=== PATIENT | female | born 1935 | race Caucasian/White ===

== ENCOUNTER 2017-05-06 09:58 | Emergency (ER) | payer OTHER ==
[~2017-05-06] VITALS: Ht 157.5 cm; Wt 54.5 kg
[~2017-05-06 09:58] MED LIST: ALEN70TA30; CHOL2000 PO; DICY10CA60 PO; LEVO75TA5 PO; OMEP20CA16 PO; ONDA4TAB14 PO; POLY17PO6 PO
[2017-05-06 10:35] VITALS: Ht 157.5 cm; Wt 54.5 kg
[2017-05-06] MEDS ORDERED: ONDANSETRON (ODT) 4 MG TAB ODT STA (12:41)
[2017-05-06] MEDS ORDERED: ONDANSETRON (ODT) 4 MG TAB ODT ONE (12:44)
[2017-05-06] MEDS ORDERED: ALEN70TA30 PO (12:44)
[2017-05-06] MEDS ORDERED: HYDROCODONE/APAP (5/325) TAB ONE (12:44)
[2017-05-06] MEDS ORDERED: LEVO75TA5 PO (12:46)
[2017-05-06] MEDS ORDERED: HYDROCODONE/APAP (5/325) TAB PO ONE (13:00)
[2017-05-06 13:05] VITALS: BP 157/72; PULSE 47; RESP 17
--- NOTE | 2017-05-06 14:05 | RADRPT ---
PROCEDURE: Right hip series CLINICAL INDICATION: Right hip pain. Trauma. TECHNIQUE: Two views of the right hip are submitted COMPARISON: None FINDINGS: The right hip appears aligned without evidence of fractures, dislocations or osteolytic lesions. Ac etabulum appears intact.. IMPRESSION: Normal RPTAT: HJPL .Carlyle Douglas MD, Date Time Electronically viewed and signed by .Carlyle Douglas MD, on 05/06/2017 14:05 .L/
--- NOTE | 2017-05-06 14:05 | RADRPT ---
PROCEDURE: XR Pelvis. CLINICAL INDICATION: Trauma. Pain. TECHNIQUE: Single AP view of the pelvis. COMPARISON: No prior studies are available for comparison. FINDINGS: The osseous structures, articular spaces, and surrounding soft tissues of the pelvis are unremarkabl e. No acute fracture or dislocation is seen. No radiopaque foreign body is identified. The osseous mineralization is normal. The sacroiliac joints, as visualized, are grossly unremarkable. IMPRESSION: 1. Unremarkable x-ray pelvis. RPTAT: HJPL .Carlyle Douglas MD, MD Date Time Electronically viewed and signed by .Carlyle Douglas MD, on 05/06/2017 14:04 .L/
--- NOTE | 2017-05-06 14:07 | RADRPT ---
PROCEDURE: XR Shoulder. CLINICAL INDICATION: Left shoulder pain. TECHNIQUE: Three views of the left shoulder are available for review. COMPARISON: None available FINDINGS: There is a mildly displaced slightly comminuted fracture of the left humeral head extending into the greater tuberosity. The glenohumeral joint is aligned without dislocation. . The acromioclavicular joint is grossly unremarkable. The visualized portions of the left clavicle and upper left rib cage are equally unremarkable. IMPRESSION: 1. Mildly displaced and comminuted fracture of the left humeral head. 2. No evidence of dislocation. RPTAT: HJPL .Carlyle Douglas MD, MD Date Time Electronically viewed and signed by .Carlyle Douglas MD, on 05/06/2017 14:06 .L/
--- NOTE | 2017-05-06 14:36 | RADRPT ---
PROCEDURE: CT Brain without contrast. CLINICAL INDICATION: Fall. Headache. TECHNIQUE: A multiplanar CT of the brain was performed on a CT scanner utilizing axial imaging fro m the skull base through the vertex without IV contrast. The CTDIvol is 43.48 mGy and the DLP is 63 0.20 mGycm. One or more of the following dose reduction techniques were utilized: Automated exposu re control, adjustment of the mA and/or kV according to patient size, use of iterative reconstructio n technique. COMPARISON: None FINDINGS: No evidence of intracranial hemorrhage or abnormal extra-axial fluid collection. Minimal soft tissue swelling along the right supraorbital scalp. The brain parenchyma is normal attenuation morphology with preservation of morris white differentiatio n and age appropriate size of the ventricles and subarachnoid spaces. Atherosclerotic calcification of the cavernous internal carotid arteries. The basal cisterns, posterior fossa contents, brainstem, craniocervical junction, orbits, pituitary axis, paranasal sinuses, mastoid air cells, and calvarium are unremarkable. IMPRESSION: 1. No intracranial hemorrhage or acute intracranial abnormality. 2. Atherosclerotic calcification of the cavernous carotid arteries. RPTAT:AAJJ Physician Robin Date Time Electronically viewed and signed by Physician Robin on 05/06/2017 14:36 BARBARA/
[2017-05-06] MEDS ORDERED: HYDR-906 PO (16:01)
--- NOTE | 2017-05-06 16:20 | ERD ---
ER Documentation Chief Complaint Date/Time DATE: 05/06/17 TIME: 16:16 Chief Complaint glf-left shoulder pain from fall; dizziness; no ko HPI This 82-year-old female who is walking in a parking lot when she accidentally sliced her balance and tripped and she fell forward and hit her left shoulder onto a parked car and fell to the ground on her right side. No loss of consciousness but says she did hit her chin there is no laceration. She complained of sharp pain to the left upper extremity and upper shoulder is worse with movement better with rest. No headache neck pain no back pain there is also some pain at the greater trochanter of the right hip. She is able to ambulate and bear weight without much difficulty or minimal pain. No pain in other extremities no chest pain shortness of breath no abdominal pain or trauma ROS All systems reviewed and are negative except as per history of present illness. Medications Home Meds Active Scripts Hydrocodone/Acetaminophen (Carson 5-325 Tablet) 1 Each Tablet, 1 TAB PO Q6H Y for PAIN, #20 TAB Prov:PAYAL MCINTOSH DO 05/06/17 Reported Medications Levothyroxine Sodium* (Levothyroxine Sodium*) 75 Mcg Tablet, 75 MCG PO BEFORE BREAKFAST, #30 TAB 05/06/17 Alendronate Sodium* (Fosamax*) 70 Mg Tablet, 70 MG PO Q7D, #4 TAB 05/06/17 Omeprazole* (Omeprazole*) 20 Mg Capsule.dr, 20 MG PO DAILY, CAP 07/27/15 Cholecalciferol* (Vitamin D3*) 2,000 Unit Cap, 2000 UNIT PO DAILY, CAP 07/27/15 Discontinued Reported Medications Dicyclomine Hcl* (Bentyl*) 10 Mg Capsule, 1 TAB PO BID, #60 08/15/16 Discontinued Scripts Ondansetron (Ondansetron Odt) 4 Mg Tab.rapdis, 4 MG PO Q6H Y for NAUSEA AND/OR VOMITING, #10 TAB Prov:OPAL MEYER DO 08/18/16 Polyethylene Glycol* (Miralax*) 17 Gm Powd.pack, 17 GM PO DAILY, #7 Prov:OPAL MEYER DO 08/18/16 Allergies Allergies: Coded Allergies: No Known Drug Allergies (Verified Allergy, Unknown, 12/22/16) PMhx/Soc History of Surgery: Yes (RT RADICAL MASTECTOMY, bilat hernia repair 5 days ago) Anesthesia Reaction: No Hx Neurological Disorder: No Hx Respiratory Disorders: No Hx Cardiac Disorders: No Hx Psychiatric Problems: No Hx Miscellaneous Medical Probl: No Hx Alcohol Use: No Hx Substance Use: No Hx Tobacco Use: No Smoking Status: Never smoker FmHx Family History: No coronary disease Physical Exam Vitals Vital Signs Date Time Temp Pulse Resp B/P Pulse Ox O2 Delivery O2 Flow Rate FiO2 05/06/17 13:05 47 17 157/72 100 Room Air 05/06/17 10:35 97.2 54 18 138/65 99 Physical Exam Const: Well-developed, well-nourished Head: Atraumatic, normocephalic Eyes: Normal Conjunctiva, PERRLA, EOMI, normal sclera, no nystagmus ENT: Normal External Ears, Nose and Mouth, moist mucus membranes. Neck: Full range of motion. No meningismus, no lymphadenopathy. Resp: Clear to auscultation bilaterally, no wheezing, rhonchi, rales Cardio: Regular rate and rhythm, no murmurs, S1 S2 present Abd: Soft, non tender x 4, non distended. Normal bowel sounds, no guarding or rebound, no pulsitile abdominal masses or bruits Skin: No petechiae or rashes, no ecchymosis , no maculopapular rash Back: No midline or flank tenderness Ext: No cyanosis, or edema, FROM x 3, the left humeral head is tender to palpation no gross dislocation. Limited range of motion secondary to pain, there is pain located at the greater trochanter of the right hip but there is full range of motion of the hip without pain, normal inspection, neurovascularly intact x 4 Neur: Awake and alert, STR 5/5 x 4, sensation intact x 4, no focal findings, cerebellum intact Psych: Normal Mood and Affect Results 24 hrs Current Medications Medications (Trade) Dose Ordered Sig/Radha Route PRN Reason Start Time Stop Time Status Last Admin Dose Admin Acetaminophen/ Hydrocodone Bitart (Carson (5/325)) 1 tab ONCE ONCE PO 05/06/17 13:00 05/06/17 13:01 DC 05/06/17 12:46 Ondansetron HCl (Zofran Odt) 4 mg ONCE STAT ODT 05/06/17 12:41 05/06/17 12:45 DC 05/06/17 12:45 Ondansetron HCl (Zofran Odt) 4 mg STK-MED ONCE ODT 05/06/17 12:44 05/06/17 12:45 DC Acetaminophen/ Hydrocodone Bitart (Carson (5/325)) 1 tab STK-MED ONCE .ROUTE 05/06/17 12:44 05/06/17 12:45 DC Procedures/MDM PROCEDURE: CT Brain without contrast. CLINICAL INDICATION: Fall. Headache. TECHNIQUE: A multiplanar CT of the brain was performed on a CT scanner utilizing axial imaging from the skull base through the vertex without IV contrast. The CTDIvol is 43.48 mGy and the DLP is 630.20 mGycm. One or more of the following dose reduction techniques were utilized: Automated exposure control, adjustment of the mA and/or kV according to patient size, use of iterative reconstruction technique. COMPARISON: None FINDINGS: No evidence of intracranial hemorrhage or abnormal extra-axial fluid collection. Minimal soft tissue swelling along the right supraorbital scalp. The brain parenchyma is normal attenuation morphology with preservation of morris white differentiation and age appropriate size of the ventricles and subarachnoid spaces. Atherosclerotic calcification of the cavernous internal carotid arteries. The basal cisterns, posterior fossa contents, brainstem, craniocervical junction , orbits, pituitary axis, paranasal sinuses, mastoid air cells, and calvarium are unremarkable. IMPRESSION: 1. No intracranial hemorrhage or acute intracranial abnormality. 2. Atherosclerotic calcification of the cavernous carotid arteries. RPTAT:AAJJ Physician Robin Date Time Electronically viewed and signed by Physician Robin on 05/06/2017 14:36 BARBARA/ CC: PAYAL MCINTOSH DO PROCEDURE: Right hip series CLINICAL INDICATION: Right hip pain. Trauma. TECHNIQUE: Two views of the right hip are submitted COMPARISON: None FINDINGS: The right hip appears aligned without evidence of fractures, dislocations or osteolytic lesions. Acetabulum appears intact.. IMPRESSION: Normal RPTAT: HJPL .Carlyle Douglas MD, MD Date Time Electronically viewed and signed by .Carlyle Douglas MD, MD on 05/06/2017 14:05 .L/ CC: PAYAL MCINTOSH DO PROCEDURE: XR Pelvis. CLINICAL INDICATION: Trauma. Pain. TECHNIQUE: Single AP view of the pelvis. COMPARISON: No prior studies are available for comparison. FINDINGS: The osseous structures, articular spaces, and surrounding soft tissues of the pelvis are unremarkable. No acute fracture or dislocation is seen. No radiopaque foreign body is identified. The osseous mineralization is normal. The sacroiliac joints, as visualized, are grossly unremarkable. IMPRESSION: 1. Unremarkable x-ray pelvis. RPTAT: HJPL .Carlyle Douglas MD, MD Date Time Electronically viewed and signed by .Carlyle Douglas MD, MD on 05/06/2017 14:04 .L/ CC: PAYAL MCINTOSH DO PROCEDURE: XR Shoulder. CLINICAL INDICATION: Left shoulder pain. TECHNIQUE: Three views of the left shoulder are available for review. COMPARISON: None available FINDINGS: There is a mildly displaced slightly comminuted fracture of the left humeral head extending into the greater tuberosity. The glenohumeral joint is aligned without dislocation. . The acromioclavicular joint is grossly unremarkable. The visualized portions of the left clavicle and upper left rib cage are equally unremarkable. IMPRESSION: 1. Mildly displaced and comminuted fracture of the left humeral head. 2. No evidence of dislocation. RPTAT: HJPL .Carlyle Douglas MD, MD Date Time Electronically viewed and signed by .Carlyle Douglas MD, MD on 05/06/2017 14:06 .L/ CC: PAYAL MCINTOSH DO While the patient follow-up with orthopedics as an outpatient she was given a left upper extremity sling Departure Diagnosis: Primary Impression: Left humeral fracture Encounter type: initial encounter Humerus Location: proximal Fracture type : closed Fracture morphology: unspecified fracture morphology Qualified Code : S42.202A - Closed fracture of proximal end of left humerus, unspecified fracture morphology, initial encounter Additional Impression: Fall with significant injury Encounter type: initial encounter Qualified Code: W19.XXXA - Fall with significant injury, initial encounter Condition: Stable Patient Instructions: Fracture, Upper Extremity, Fall Prevention Referrals: MARÍA ELENA COLLADO MD, APOSTOLOS A. DO May 06, 2017 16:20
== END 2017-05-06 17:05 | disposition home or self-care (01) ==
LOC: E/R 09:58
DX: S42.202A Unspecified fracture of upper end of left humerus, initial encounter for closed fracture (principal); R51 Headache; W01.198A Fall on same level from slipping, tripping and stumbling with subsequent striking against other object, initial encounter; Y92.9 Unspecified place or not applicable
CPT/HCPCS: 70450; 72170; 73030; 73510; Z7502; Z7610

== ENCOUNTER 2017-09-01 17:04 | Inpatient (IN) | END 2017-09-04 14:50 | disposition home or self-care (01) | DRG 123 ==

== ENCOUNTER 2018-08-17 10:54 | Inpatient (IN) | payer MEDICARE, OTHER ==
[~2018-08-17] VITALS: Ht 160 cm; Wt 48.4 kg
[2018-08-17] VITALS (19 sets, daily range): BP systolic 58–154; BP diastolic 49–91; PULSE 44–63; RESP 12–27; Ht 160 cm; Wt 48.4 kg
[~2018-08-17 10:54] MED LIST changes: -ALEN70TA30; +ALEN70TA44 PO; -DICY10CA60 PO; +HYDR-4011 PO; -ONDA4TAB14 PO; -POLY17PO6 PO
[2018-08-17] MEDS ORDERED: OMEP40CA6 PO (11:38)
[2018-08-17] MEDS ORDERED: CHOL200073 PO (11:38)
[2018-08-17] MEDS ORDERED: MECL-77 PO (11:39)
[2018-08-17] MEDS ORDERED: LEVO75TA65 PO (11:39)
[2018-08-17] MEDS ORDERED: ZOLP5TAB7 PO (11:39)
[2018-08-17] MEDS ORDERED: morphine 2 MG INJ IV STA (13:10)
[2018-08-17] MEDS ORDERED: ONDANSETRON 4 MG INJ IV STA (13:10)
--- NOTE | 2018-08-17 13:28 | HP ---
Date/Time of Note Date/Time of Note DATE: 08/17/18 TIME: 13:27 Assessment/Plan VTE Prophylaxis SCD applied (from Nsg): Yes Pharmacological prophylaxis: NA/contraindicated Pharm contraindication: bleeding Lines/Catheters IV Catheter Type (from Nrsg): Saline Lock Assessment/Plan Assessment/Plan 1. Acute subdural hematoma s/p mechanical fall - Patient missed a step walking down front steps outside home. - CT scan of head shows 3mm subdural hematoma and left frontoparietal swelling/hematoma. - Neurosurgery consulted by ED and appreciate consultation and recommendations. Will monitor in ICU and repeat CT scan head in am to assess SDH - continue neurochecks and avoid sedation medications - no focal deficits appreciated - maintain BP <140 2. mechanical fall - PT/OT to assess balance but appears patient simply tripped 3. Left 5th metatarsal fx - Discussed with podiatry and appreciate recommendations - Recommending CAM boot and partial weight bearing left foot. Will need repeat xrays and podiatry follow up in 2 weeks - pain control 4. hypothyroidism - will continue home dose of levothyroxine 5. GERD - PPI 6. DVT ppx - SCD 7. Code status - Full 8. Disposition - Admit to ICU for close monitoring of subdural hematoma Result Diagram: 08/17/18 1143 08/17/18 1143 Results 24hrs Laboratory Tests Test 08/17/18 11:43 White Blood Count 4.5 L Red Blood Count 4.45 Hemoglobin 13.4 Hematocrit 41.2 Mean Corpuscular Volume 92.6 Mean Corpuscular Hemoglobin 30.1 Mean Corpuscular Hemoglobin Concent 32.5 Red Cell Distribution Width 12.7 Platelet Count 138 L Mean Platelet Volume 13.0 H Immature Granulocytes % 0.200 Neutrophils % 66.6 Lymphocytes % 23.7 Monocytes % 7.3 Eosinophils % 2.0 Basophils % 0.2 Nucleated Red Blood Cells % 0.0 Immature Granulocytes # 0.010 Neutrophils # 3.0 Lymphocytes # 1.1 Monocytes # 0.3 Eosinophils # 0.1 Basophils # 0.0 Nucleated Red Blood Cells # 0.0 Prothrombin Time 12.7 Prothrombin Time Ratio 1.0 INR International Normalized Ratio 0.94 Activated Partial Thromboplast Time 30.8 Sodium Level 143 Potassium Level 3.9 Chloride Level 109 Carbon Dioxide Level 25 Anion Gap 9 Blood Urea Nitrogen 11 Creatinine 0.36 L Est Glomerular Filtrat Rate mL/min Glucose Level 119 Calcium Level 9.5 HPI/ROS Admit Date/Time Admit Date/Time 08/17/18 1400 Hx of Present Illness 83 yo F with PMH hypothyroidism, GERD, and arthritis presented to ED after ground level mechanical fall. Patient states she was walking down the steps in front of her home and missed a step and tripped. She twisted her ankle and fell on her left side with head trauma. She is currently complaining of pain in left parietal area, hip, and left foot. She denies any LOC, dizziness, visual change s, focal weakness or numbness, chest pain, or shortness of breath. Imaging studies were performed and CT head showed 3mm subdural hematoma with swelling and hematoma in left frontal parietal area. ROS All 12 systems reviewed and pertinent positives as per HPI. All others negative. Constitutional: No chills, No fatigue, No nausea Eyes: No discharge ENT: No congestion Respiratory: No cough, No shortness of breath, No sputum, No wheezing Cardiovascular: No chest pain, No lightheadedness, No palpitations Gastrointestinal: No pain, No constipation, No diarrhea, No nausea Genitourinary: No dysuria, No discharge Musculoskeletal: other (left hip and foot pain) Skin: bruising, other (raised bump left parietal area) Neurologic: headache; No confusion, No dizziness, No focal-weakness, No syncope Endocrine: no complaints Lymphatic: no complaints Psychological: nl mood/affect Immunologic: no complaints PMH/Family/Social Past Medical History Medical History: GERD, hypothyroid, other (arthritis) Medications Current Medications Cholecalciferol (Vitamin D) 2,000 unit DAILY PO ; Start 08/18/18 at 09:00; Status UNV Levothyroxine Sodium (Synthroid) 75 mcg BEFORE BREAKFAST PO ; Start 08/18/18 at 07:00; Status UNV Meclizine HCl (Antivert) 25 mg Q8H PRN PO DIZZINESS; Start 08/17/18 at 13:30; Status UNV Zolpidem Tartrate (Ambien) 5 mg QHS PRN PO INSOMNIA; Start 08/17/18 at 13:30; Status UNV Miscellaneous Information 40 mg DAILY PO ; Start 08/18/18 at 09:00; Status UNV Ondansetron HCl (Zofran Inj) 4 mg Q6H PRN IV NAUSEA AND/OR VOMITING; Start at 13:30; Status UNV Albuterol (Proventil 0.083% (Neb)) 2.5 mg Q2H RESP THERAPY PRN NEB SHORTNESS OF BREATH; Start 08/17/18 at 13:30; Status UNV Acetaminophen (Tylenol Tab) 650 mg Q6H PRN PO PAIN LEVEL 1-3 OR FEVER; Start 08/17/18 at 13:30; Status UNV Docusate Sodium (Colace) 100 mg Q12H PRN PO CONSTIPATION; Start 08/17/18 at 13:30; Status UNV Magnesium Hydroxide (Milk Of Mag) 30 ml DAILY PRN PO CONSTIPATION; Start 08/17/18 at 13:30; Status UNV Pantoprazole (Protonix Tab) 40 mg DAILY@06 PO ; Start 08/18/18 at 06:00; Status UNV Coded Allergies: No Known Drug Allergies (Verified Allergy, Unknown, 08/17/18) Past Surgical History Past Surgical Hx: other (right mastectomy with axiallary dissection) Family History Significant Family History: no pertinent family hx Social History Alcohol Use: none Smoking Status: Never smoker Drug Use: none Exam/Review of Systems Vital Signs Vitals Vital Signs Date Temp Pulse Resp B/P (MAP) Pulse Ox O2 O2 Flow FiO2 Time Delivery Rate 08/17/18 51 18 140/71 99 Room Air 12:29 (94) 08/17/18 97.9 10:56 Exam Exam General: pleasant female, no acute distress. answering questions appropriately HEENT: NC. hematoma/raised area appreciated on left parietal lobe, PERRL. EOM intact Chest: nontender Neck: supple CVS: S1, S2 regular rate and rhythm. no murmurs Lungs: clear to auscultation bilaterally. no wheezing or rhonchi Abd: soft, nontender, nondistended, no rebound or guarding. +BS appreciated all quadrants Ext: moving all extremities. no cyanosis, clubbing or edema appreciated Skin: hematoma lateral/dorsal aspect left foot. no discharge or drainage SULEMAN BAIRD MD Aug 17, 2018 13:28
[2018-08-17] MEDS ORDERED: MECLIZINE 25 MG TAB PO PRN (13:30)
[2018-08-17] MEDS ORDERED: DOCUSATE SODIUM 100 MG CAP PO PRN (13:30)
[2018-08-17] MEDS ORDERED: ACETAMINOPHEN 325 MG TAB PO PRN (13:30)
[2018-08-17] MEDS ORDERED: ALBUTEROL 0.083% (NEB) 2.5 MG/3 ML AMP NEB PRN (13:30)
[2018-08-17] MEDS ORDERED: MAGNESIUM HYDROXIDE 30ML CUP PO PRN (13:30)
[2018-08-17] MEDS ORDERED: ZOLPIDEM 5 MG TAB PO PRN (13:30)
[2018-08-17] MEDS ORDERED: ONDANSETRON 4 MG INJ IV PRN (13:30)
--- NOTE | 2018-08-17 13:42 | ERD ---
ER Documentation Chief Complaint Chief Complaint MISSED STEP AND FELL. TWISTED LEFT ANKLE AND HIT HEAD. NO LOC. HPI 83-year-old female presenting after a ground-level mechanical fall. She is complaining of left-sided head pain with no loss of consciousness. She also is complaining of left hip and left foot pain. She denies any nausea, vomiting, focal weakness or numbness, vision disturbance, or significant headache. She denies being on aspirin or any other blood thinners. She is denying back pain as well. ROS All systems reviewed and are negative except as per history of present illness. Medications Home Meds Reported Medications Meclizine Hcl* (Meclizine Hcl*) 25 Mg Tablet, 25 MG PO Q8H PRN for DIZZINESS, TAB 08/17/18 Levothyroxine Sodium* (Levoxyl*) 75 Mcg Tablet, 75 MCG PO BEFORE BREAKFAST, #30 TAB 08/17/18 Zolpidem Tartrate* (Zolpidem Tartrate*) 5 Mg Tablet, 5 MG PO QHS PRN for INSOMNIA, #30 TAB 08/17/18 Cholecalciferol (Vitamin D3) (VITAMIN D-3) 2,000 Unit Capsule, 2000 UNIT PO DAILY, CAP 08/17/18 Omeprazole* (Omeprazole*) 40 Mg Capsule.dr, 40 MG PO DAILY, #30 CAP 08/17/18 Discontinued Reported Medications Levothyroxine Sodium* (Levothyroxine Sodium*) 75 Mcg Tablet, 75 MCG PO BEFORE BREAKFAST, #30 TAB 05/06/17 Alendronate Sodium* (Fosamax*) 70 Mg Tablet, 70 MG PO Q7D, #4 TAB 05/06/17 Omeprazole* (Omeprazole*) 20 Mg Capsule.dr, 20 MG PO DAILY, CAP 07/27/15 Cholecalciferol* (Vitamin D3*) 2,000 Unit Cap, 2000 UNIT PO DAILY, CAP 07/27/15 Discontinued Scripts Hydrocodone/Acetaminophen ([place] 5-325 Tablet) 1 Each Tablet, 1 TAB PO Q6H PRN for PAIN, #20 TAB Prov:PAYAL MCINTOSH DO 05/06/17 Allergies Allergies: Coded Allergies: No Known Drug Allergies (Verified Allergy, Unknown, 08/17/18) PMhx/Soc History of Surgery: Yes (R mastectomy- 2014, bilateral hernia repair- 2016, lens replacement) Anesthesia Reaction: No Hx Neurological Disorder: No Hx Respiratory Disorders: No Hx Cardiac Disorders: No Hx Psychiatric Problems: Yes (depression ) Hx Miscellaneous Medical Probl: Yes (Hypothyroidism) Hx Alcohol Use: No Hx Substance Use: No Hx Tobacco Use: No Smoking Status: Never smoker FmHx Family History: No diabetes Physical Exam Vitals Vital Signs Date Temp Pulse Resp B/P (MAP) Pulse Ox O2 O2 Flow FiO2 Time Delivery Rate 08/17/18 51 18 140/71 99 Room Air 12:29 (94) 08/17/18 97.9 53 16 146/70 97 10:56 (95) Physical Exam Const: No acute distress Head: Left parietal hematoma with no evidence of skull depression Eyes: Normal Conjunctiva, PERRLA, EOMI ENT: Normal External Ears, Nose and Mouth. No hemotympanum Neck: Full range of motion. No meningismus. No C-spine tenderness Resp: Clear to auscultation bilaterally Cardio: Regular rate and rhythm, no murmurs Abd: Soft, non tender, non distended. Normal bowel sounds Skin: No petechiae or rashes Back: No midline or flank tenderness Ext: Left lateral foot with hematoma over the dorsal lateral aspect and tenderness along the lateral foot. No joint swelling. Ankle nontender. The rest of the upper and lower extremities appear normal and nontender to palpation. 2+ DP and PT pulses bilaterally. No cyanosis, or edema Neur: Awake and alert, oriented x3, no facial asymmetry, cranial nerves intact, strength and sensations intact in all 4 extremities. Psych: Normal Mood and Affect Result Diagram: 08/17/18 1143 08/17/18 1143 Results 24 hrs Laboratory Tests Test 08/17/18 11:43 White Blood Count 4.5 10^3/ul Red Blood Count 4.45 10^6/ul Hemoglobin 13.4 g/dl Hematocrit 41.2 % Mean Corpuscular Volume 92.6 fl Mean Corpuscular Hemoglobin 30.1 pg Mean Corpuscular Hemoglobin Concent 32.5 g/dl Red Cell Distribution Width 12.7 % Platelet Count 138 10^3/UL Mean Platelet Volume 13.0 fl Immature Granulocytes % 0.200 % Neutrophils % 66.6 % Lymphocytes % 23.7 % Monocytes % 7.3 % Eosinophils % 2.0 % Basophils % 0.2 % Nucleated Red Blood Cells % 0.0 /100WBC Immature Granulocytes # 0.010 10^3/ul Neutrophils # 3.0 10^3/ul Lymphocytes # 1.1 10^3/ul Monocytes # 0.3 10^3/ul Eosinophils # 0.1 10^3/ul Basophils # 0.0 10^3/ul Nucleated Red Blood Cells # 0.0 10^3/ul Prothrombin Time 12.7 Sec Prothrombin Time Ratio 1.0 INR International Normalized Ratio 0.94 Activated Partial Thromboplast Time 30.8 Sec Sodium Level 143 mmol/L Potassium Level 3.9 mmol/L Chloride Level 109 mmol/L Carbon Dioxide Level 25 mmol/L Anion Gap 9 Blood Urea Nitrogen 11 mg/dl Creatinine 0.36 mg/dl Est Glomerular Filtrat Rate mL/min mL/min Glucose Level 119 mg/dl Calcium Level 9.5 mg/dl Current Medications Medications Dose Sig/Radha Start Time Status Last (Trade) Ordered Route PRN Stop Time Admin Dose Reason Admin Morphine 2 mg ONCE STAT 08/17/18 DC 08/17/18 Sulfate IV 13:10 13:15 (morphine) 08/17/18 13:11 Ondansetron 4 mg ONCE STAT 08/17/18 DC 08/17/18 HCl (Zofran IV 13:10 13:15 Inj) 08/17/18 13:11 2,000 unit DAILY PO 08/18/18 UNV Cholecalcifer 09:00 ol (Vitamin D) 75 mcg BEFORE 08/18/18 UNV Levothyroxine BREAKFAST 07:00 Sodium PO (Synthroid) Meclizine 25 mg Q8H PRN 08/17/18 UNV HCl PO DIZZINESS 13:30 (Antivert) Zolpidem 5 mg QHS PRN 08/17/18 UNV Tartrate PO INSOMNIA 13:30 (Ambien) 40 mg DAILY PO 08/18/18 UNV Miscellaneous 09:00 Information Ondansetron 4 mg Q6H PRN 08/17/18 UNV HCl (Zofran IV NAUSEA 13:30 Inj) AND/OR VOMITING Albuterol 2.5 mg Q2H RESP 08/17/18 UNV (Proventil THERAPY PRN 13:30 0.083% (Neb)) NEB SHORTNESS OF BREATH 650 mg Q6H PRN 08/17/18 UNV Acetaminophen PO PAIN 13:30 (Tylenol LEVEL 1-3 OR Tab) FEVER Docusate 100 mg Q12H PRN 08/17/18 UNV Sodium PO 13:30 (Colace) CONSTIPATION Magnesium 30 ml DAILY PRN 08/17/18 UNV Hydroxide PO 13:30 (Milk Of Mag) CONSTIPATION 40 mg DAILY@06 08/18/18 UNV Pantoprazole PO 06:00 (Protonix Tab) Procedures/MDM EMERGENT LABS AND DIAGNOSTIC STUDIES: Lab Results above were reviewed and interpreted by me. CBC: Mild leukopenia and thrombocytopenia BMP: No evidence of electrolyte abnormality, renal failure, hypoglycemia Coags normal with no evidence of coagulopathy Radiology Results as interpreted by Radiology below were reviewed by Odilon Henry MD: Left foot x-ray with evidence of 5th metatarsal fracture Pelvic x-ray does not show any obvious acute abnormalities CT head shows evidence of a 3 mm thickness subdural hematoma on the left with no midline shift Initial Nursing notes reviewed. Previous Medical Records requested via the Electronic Health Record. EMERGENCY DEPARTMENT COURSE / MEDICAL DECISION MAKING: Patient is presenting after a mechanical ground-level fall with evidence of head injury and left foot injury. Vitals are stable and she is neurovascularly intact. CT head was done given her age and shows a small subdural hematoma on the left. She also has a foot fracture. A short leg posterior splint was applied to the left lower extremity. I spoke with Dr. Landers from neurosurgery. He recommended admission for close neuro monitoring in the ICU and repeat CT scan in the morning. Upon reevaluation, patient remains neurova scularly intact. Morphine given for pain control. Critical Care Time: 35 minutes Treatments/Evaluations: Close monitoring and treatment of unstable vital signs, cardiorespiratory, and neurologic status, while maintaining tight balance of fluid, respiratory, and cardiac interventions. This time includes discussing the case with the patient and the patients family. This time does not include all procedures stated elsewhere in this record. This time also includes reviewing old records, labs and radiological studies. This time includes examining and re- examining the patient. Additionally, this time also includes arranging care with admitting and consulting physicians. Accepting Care Team: Current data and ongoing care discussed. Time: Time of admission Primary Provider: Dr. Escobedo Consulting: Dr. landers Outstanding Data: CT C-spine Departure Diagnosis: Primary Impression: Fall with significant injury Encounter type: initial encounter Qualified Codes: W19.XXXA - Unspecified fall, initial encounter Additional Impressions: Subdural hematoma, post-traumatic Encounter type: initial encounter Loss of consciousness presence/duration: without LOC Qualified Codes: S06.5X0A - Traumatic subdural hemorrhage without loss of consciousness, initial encounter Fracture of base of fifth metatarsal bone Encounter type: initial encounter Fracture type: closed Laterality: left Qualified Codes: S92.352A - Displaced fracture of fifth metatarsal bone, left foot, initial encounter for closed fracture Condition: Serious TYSHAWN HENRY MD Aug 17, 2018 13:42
--- NOTE | 2018-08-17 14:18 | CONS ---
DATE OF ADMISSION: 08/17/2018 DATE OF CONSULTATION: 08/17/2018 REQUESTING PHYSICIAN: Carol Henry MD INDICATION FOR CONSULTATION: Subdural hematoma. HISTORY OF PRESENT ILLNESS: The patient is an 83-year-old right-handed female without significant medical problems who fell from approximately 2 steps at the end of a stairwell. The patient denies loss of consciousness. She also reports that she twisted her ankle and hurt her left foot. She was brought to ER where CT scan was performed which showed a small left acute subdural hematoma. There is no significant mass effect or shift. There is no evidence of fracture. The patient currently reports mild bitemporal headache. She denies any nausea, vomiting, numbness, tingling, or weakness. She reports some neck pain, more on the right than the left, but states that this is mild. The patient's daughters were at the bedside. The patient also complains of some tenderness on the left parietal area where she has a cephalohematoma. REVIEW OF SYSTEMS: A 12-point review of systems was performed. Pertinent positives and negatives listed in history of present illness and below. CONSTITUTIONAL: Denies any recent fevers, chills, or weight loss. HEMATOLOGIC: Denies history of easy bruising or bleeding. MUSCULOSKELETAL: Reports some mild neck pain as well as bruising on her skull. She denies any low back pain. PAST MEDICAL HISTORY: The patient denies cardiac disease, hypertension or diabetes. The patient does report a past history of breast cancer. PAST SURGICAL HISTORY: Significant for breast surgery for breast cancer as well as inguinal hernia repair. SOCIAL HISTORY: The patient is a nonsmoker, nondrinker. ALLERGIES: No known drug allergies. MEDICATIONS: The patient states that she does not take any blood thinning medications. She does take: 1. Calciferol. 2. Levothyroxine. PHYSICAL EXAMINATION: VITAL SIGNS: The patient's temperature 97.9, pulse 51, respirations 18, blood pressure 140/71, saturating 99% on room air. GENERAL: The patient is an elderly female lying in the hospital bed in no acute distress. HEAD AND NECK: She is normocephalic. She has a left cephalohematoma. There is no large open laceration. There is no evidence of Otoole sign, periorbital ecchymoses, otorrhea, or rhinorrhea. NECK: She has some mild tenderness to palpation in the paraspinal musculature at the upper cervical spine; however, she has been moving her neck and does not have a Spurling or Lhermitte sign. CARDIAC: Regular rhythm. LUNGS: Clear to auscultation. ABDOMEN: Nontender, nondistended, soft. EXTREMITIES: No clubbing or cyanosis. She does have evidence of bruising and swelling distal to her ankle in her left metatarsal. NEUROLOGIC: Patient is awake, alert, and oriented x3, fluent speech, follows commands readily appropriately. She has normal attention and concentration intact remote, immediate and recent memory. She speaks mostly Vincentian, and very little Angolan. Cranial nerves II through XII were serially tested and are grossly intact, specifically II: Grossly normal visual acuity. III, IV and : Extraocular muscles intact. Pupils equal, reactive, round to light. V: Normal facial sensation bilaterally. VII: Face symmetrical dynamically and statically. VIII: Grossly normal auditory acuity to finger rub and normal voice. IX/X: Symmetrical palate raise, 5/5 sternocleidomastoid and shoulder shrug. XII: No tongue deviation when protruded. Her motor exam 5/5 bilateral upper and lower extremity. She has no pronator drift. Cerebellar: She has no ataxia or dysmetria with [id number]-ncut or dhgpuy-es-dydnqk testing. Deep tendon reflexes were absent in her lower extremities, 1+ in her right biceps, brachioradialis and triceps, 2+ bicep and brachioradialis on the right and 1+ triceps. She has intact sensation to light touch. LABORATORY DATA: White count 4.5, hemoglobin 13.4, platelets were 138. Coagulation panel was normal with a PT of 27.7, INR 0.94 and an APTT of 30.4. Sodium was 143, BUN and creatinine 11 and 0.36 with glucose of 119. REVIEW OF RADIOGRAPHIC RESULTS: The patient had a CT scan of the head which again showed a small subacute subdural hematoma overlying the left parietal frontal region measuring 3 mm in thickness. There was no acute intracranial transcortical infarction or mass effect. Generalized cerebral volume loss and there is a left frontoparietal scalp swelling and hematoma without underlying skull fracture. This was interpretation of Wilfred Telles MD and I agree with his interpretation. It should be noted that subdural hematoma is very thin and can really only be appreciated on the coronal slices. ASSESSMENT AND PLAN: An 83-year-old female status post fall with subdural hematoma. I discussed patient's signs, symptoms, physical examination, radiographic findings with her and her family. This appears to be nonoperative subdural hematoma and it would seem unlikely that this will likely progress in size especially since the patient does not appear to have any significant coagulopathy and is not taking any blood thinning or antiplatelet medication. She has a minimal thrombocytopenia. However, given the patient's age and volume loss, the patient should simply been in for observation and have a repeat CT scan in the morning to assess for any progression. Barring any progression on repeat, the patient should be stable neurologically to go home, should she not have any new neurologic changes. Given the patient's report of neck pain she should also have a CT scan of the cervical spine to rule out any type of fracture. The patient is being seen by the medical service for observation. The patient and daughter have expressed understanding and agreement with this plan of care. Dictated By: HAMIDA SARABIA MD, LG/KYLE Conf#: [id number] DID#: [id number] MTDD
[2018-08-17] MEDS ORDERED: hydrALAzine 20 MG INJ IV PRN (15:30)
[2018-08-17] MEDS ORDERED: traMADol 50 MG TAB PO PRN (16:00)
[2018-08-17] MEDS ORDERED: SOD CHLORIDE 0.9% 1,000 ML IV ONE (18:00)
[2018-08-17] MEDS ORDERED: KETOROLAC 30 MG INJ IV PRN (18:30)
[2018-08-17] MEDS ORDERED: HYDROCODONE/APAP (5/325) TAB PO PRN (18:30)
--- NOTE | 2018-08-17 19:25 | NUR ---
Patient admitted from ER around 1600. VSS stable although HR is low in the 50's, this is reported as her baseline. Significant pain noted form her head and L foot, treated with prn Tramadol. About 45 minutes after administration patient became nauseated, became even more bradycardiac, and extremely hypotensive. notified and Dr. Mckeon came to evaluate patient. 1 L fluid bolus ordered and new PIV started. Patient now stable with stable VS and no longer nauseated. Pt has an advance directive (copy on chart), she is a [employer] and is unwilling to receive blood products. According to the advance directive, patient designated that she does not wish to have any lifesaving measures, after speaking with the patient and the daughter regarding this, it is believed that is in error. They are requesting that life saving measures be taking in the event they are necessary. Social work consult placed to help facilitate proper paperwork.
[2018-08-18] VITALS (18 sets, daily range): BP systolic 73–142; BP diastolic 52–66; PULSE 49–60; RESP 14–21
[2018-08-18] MEDS ORDERED: PANTOPRAZOLE (EC) 40 MG TAB PO SCH (06:00)
[2018-08-18] MEDS: LEVOTHYROXINE 75 MCG TAB PO SCH (06:06)
[2018-08-18] MEDS: PANTOPRAZOLE (EC) 40 MG TAB PO SCH (06:07)
--- NOTE | 2018-08-18 06:30 | NUR ---
EOSS: Pt remains in ICU, no neuro deficit noted, Neuro checks q 1h, denies pain, able to turn and repositioned with assist, due meds adm. ate dinner w/o problems , ate 50% of diet served , vital signs stable,afebrile, able to void via bedpan, no signs of distress noted.CT scan follow up this am08/18/18
--- NOTE | 2018-08-18 08:38 | PN ---
Date/Time of Note Date/Time of Note DATE: 08/18/18 TIME: 08:38 Assessment/Plan VTE Prophylaxis Risk score (from Ns)>0 risk: 7 SCD applied (from Ns): Yes Pharmacological prophylaxis: NA/contraindicated Pharm contraindication: bleeding Lines/Catheters IV Catheter Type (from Nrs): Peripheral IV Urinary Cath still in place: No Assessment/Plan Assessment/Plan 1. Acute subdural hematoma s/p mechanical fall- stable - Repeat CT scan shows stable SDH. Okay from neurosurgical standpoint for discharge with outpatient PCP follow up - Patient missed a step walking down front steps outside home. - no focal deficits appreciated 2. mechanical fall - PT/OT 3. Left 5th metatarsal fx - Discussed with podiatry and appreciate recommendations - Recommending CAM boot and partial weight bearing left foot. Will need repeat xrays and podiatry follow up in 2 weeks - Patient having difficulty ambulating and will need PT to evaluate if okay for d/c home - pain control 4. hypothyroidism - will continue home dose of levothyroxine 5. Disposition - Okay for transfer to med/surg for continued PT/OT - CAM boot to be ordered prior to discharge home Result Diagram: 08/18/18 0458 08/18/18 0458 Results 24hrs Laboratory Tests Test 08/17/18 11:43 08/18/18 04:58 White Blood Count 4.5 L 5.3 Red Blood Count 4.45 3.95 L Hemoglobin 13.4 12.0 Hematocrit 41.2 37.0 Mean Corpuscular Volume 92.6 93.7 Mean Corpuscular Hemoglobin 30.1 30.4 Mean Corpuscular Hemoglobin Concent 32.5 32.4 Red Cell Distribution Width 12.7 13.0 Platelet Count 138 L 118 L Mean Platelet Volume 13.0 H 13.0 H Immature Granulocytes % 0.200 0.200 Neutrophils % 66.6 64.1 Lymphocytes % 23.7 22.4 Monocytes % 7.3 9.3 Eosinophils % 2.0 3.4 Basophils % 0.2 0.6 Nucleated Red Blood Cells % 0.0 0.0 Immature Granulocytes # 0.010 0.010 Neutrophils # 3.0 3.4 Lymphocytes # 1.1 1.2 Monocytes # 0.3 0.5 Eosinophils # 0.1 0.2 Basophils # 0.0 0.0 Nucleated Red Blood Cells # 0.0 0.0 Prothrombin Time 12.7 Prothrombin Time Ratio 1.0 INR International Normalized Ratio 0.94 Activated Partial Thromboplast Time 30.8 Sodium Level 143 141 Potassium Level 3.9 4.3 Chloride Level 109 107 Carbon Dioxide Level 25 25 Anion Gap 9 9 Blood Urea Nitrogen 11 15 Creatinine 0.36 L 0.53 Est Glomerular Filtrat Rate mL/min Glucose Level 119 105 Calcium Level 9.5 9.0 Phosphorus Level 3.4 Magnesium Level 2.1 Albumin 3.6 Subjective 24 Hr Interval Summary Free Text/Dictation Patient states her headache has improved significantly. She is having difficulty ambulating given pain. No acute overnight events. Exam/Review of Systems Vital Signs Vitals Vital Signs Date Temp Pulse Resp B/P (MAP) Pulse Ox O2 O2 Flow FiO2 Time Delivery Rate 08/18/18 60 08:00 08/18/18 16 109/58 95 Nasal 05:00 (75) Cannula 08/18/18 98.4 04:00 08/18/18 2.0 00:00 Intake and Output 08/17/18 08/17/18 08/18/18 1515:00 23:00 07:00 IntakeIntake Total 1240 ml 90 ml OutputOutput Total 200 ml BalanceBalance 1240 ml -110 ml Exam General: pleasant female, no acute distress. HEENT: hematoma with abrasion left parietal lobe, PERRL. EOM intact CVS: S1, S2 regular rate and rhythm. no murmurs Lungs: clear to auscultation bilaterally. no wheezing or rhonchi Abd: soft, nontender, nondistended, no rebound or guarding. +BS appreciated all quadrants Ext: moving all extremities. no cyanosis, clubbing or edema appreciated Skin: Kerlix around left lower extremity. no discharge or drainage Medications Medications Current Medications Cholecalciferol (Vitamin D) 2,000 unit DAILY PO ; Start 08/18/18 at 09:00 Levothyroxine Sodium (Synthroid) 75 mcg BEFORE BREAKFAST PO Last administered on 08/18/18at 06:06; Admin Dose 75 MCG; Start 08/18/18 at 07:00 Meclizine HCl (Antivert) 25 mg Q8H PRN PO DIZZINESS; Start 08/17/18 at 13:30 Pantoprazole (Protonix Tab) 40 mg DAILY@06 PO Last administered on 08/18/18at 06:07; Admin Dose 40 MG; Start 08/18/18 at 06:00 Ondansetron HCl (Zofran Inj) 4 mg Q6H PRN IV NAUSEA AND/OR VOMITING Last administered on 08/17/18at 17:54; Admin Dose 4 MG; Start 08/17/18 at 13:30 Albuterol (Proventil 0.083% (Neb)) 2.5 mg Q2H RESP THERAPY PRN NEB SHORTNESS OF BREATH; Start 08/17/18 at 13:30 Acetaminophen (Tylenol Tab) 650 mg Q6H PRN PO PAIN LEVEL 1-3 OR FEVER; Start 08/17/18 at 13:30 Docusate Sodium (Colace) 100 mg Q12H PRN PO CONSTIPATION; Start 08/17/18 at 13:30 Magnesium Hydroxide (Milk Of Mag) 30 ml DAILY PRN PO CONSTIPATION; Start 08/17/18 at 13:30 Hydralazine HCl (Apresoline) 10 mg Q4H PRN IV SBP >160; Start 08/17/18 at 15:30 Acetaminophen/ Hydrocodone Bitart ([place] (5/325)) 1 tab Q4H PRN PO MODERATE PAIN LEVEL 4-6; Start 08/17/18 at 18:30 SULEMAN BAIRD MD Aug 18, 2018 08:38
--- NOTE | 2018-08-18 09:06 | CONS ---
Date/Time of Note Date/Time of Note DATE: 08/18/18 TIME: 09:01 Assessment/Plan Assessment/Plan Chief Complaint/Hosp Course s/p fall with Subdural hematoma. Neurologically stable. Awaiting repeat CT, if subdural hematoma not significantly worsened, can D/C home. CT of cervical spine did not show evidence of fracture or subluxation. can f/u with PMD as outpatient. Consultation Date/Type/Reason Admit Date/Time Aug 17, 2018 at 13:22 Initial Consult Date Jul Type of Consult Neurosurgery Reason for Consultation subdural hematoma 24 HR Interval Summary Free Text/Dictation Patient doing well. She denies headache, nausea, or vomiting. She denies any numbness, weakness, or radiating pain. Exam/Review of Systems Vital Signs Vitals Vital Signs Date Temp Pulse Resp B/P (MAP) Pulse Ox O2 O2 Flow FiO2 Time Delivery Rate 08/18/18 60 08:00 08/18/18 16 109/58 95 Nasal 05:00 (75) Cannula 08/18/18 98.4 04:00 08/18/18 2.0 00:00 Intake and Output 08/17/18 08/17/18 08/18/18 1515:00 23:00 07:00 IntakeIntake Total 1240 ml 90 ml OutputOutput Total 200 ml BalanceBalance 1240 ml -110 ml Exam Constitutional: alert, oriented, well developed Psych: no complaints Head: normocephalic Neurological: [place] II-XII intact, nl mental status (fluent speech. Follows commands readily and appropriately. She does not exhibit a pronator drift. ), nl speech, nl strength Medications Medications Current Medications Cholecalciferol (Vitamin D) 2,000 unit DAILY PO ; Start 08/18/18 at 09:00 Levothyroxine Sodium (Synthroid) 75 mcg BEFORE BREAKFAST PO Last administered on 08/18/18at 06:06; Admin Dose 75 MCG; Start 08/18/18 at 07:00 Meclizine HCl (Antivert) 25 mg Q8H PRN PO DIZZINESS; Start 08/17/18 at 13:30 Pantoprazole (Protonix Tab) 40 mg DAILY@06 PO Last administered on 08/18/18at 06:07; Admin Dose 40 MG; Start 08/18/18 at 06:00 Ondansetron HCl (Zofran Inj) 4 mg Q6H PRN IV NAUSEA AND/OR VOMITING Last administered on 08/17/18at 17:54; Admin Dose 4 MG; Start 08/17/18 at 13:30 Albuterol (Proventil 0.083% (Neb)) 2.5 mg Q2H RESP THERAPY PRN NEB SHORTNESS OF BREATH; Start 08/17/18 at 13:30 Acetaminophen (Tylenol Tab) 650 mg Q6H PRN PO PAIN LEVEL 1-3 OR FEVER; Start 08/17/18 at 13:30 Docusate Sodium (Colace) 100 mg Q12H PRN PO CONSTIPATION; Start 08/17/18 at 13:30 Magnesium Hydroxide (Milk Of Mag) 30 ml DAILY PRN PO CONSTIPATION; Start 08/17/18 at 13:30 Hydralazine HCl (Apresoline) 10 mg Q4H PRN IV SBP >160; Start 08/17/18 at 15:30 Acetaminophen/ Hydrocodone Bitart ([place] (5/325)) 1 tab Q4H PRN PO MODERATE PAIN LEVEL 4-6; Start 08/17/18 at 18:30 HAMIDA SARABIA MD Aug 18, 2018 09:06
[2018-08-18] MEDS: CHOLECALCIFEROL 2,000 UNIT CAP PO SCH (10:38)
--- NOTE | 2018-08-18 13:49 | NUR ---
SS NOTE: CONSULT RECEIVED ORDER TO REVIEW PT'S AHCD. SW REVIEWED PT'S RECORDS. PT ADMITTED DUE TO ACUTE SUBDURAL HEMATOMA S/P FALL. MAUDE MET WITH PT AND DTR, AARON AT PT'S BEDSIDE. PT LIVES AT HOME WITH DTR AND GRANDDTR. PT IS BAP[employer]ISM. COPY OF HER AHCD IN THE CHART. PER PT'S AHCD, PT DECLINES BLOOD TRANSFUSIONS AND DOES NOT WANT TO PROLONG LIFE IF HER SITUATION IS HOPELESS. SW DISCUSSED PT'S WISHES WITH PT AND DTR. DTR CLARIFIED THAT PT WANTS FULL CODE AND FULL TREATMENT EXCEPT FOR BLOOD TRANSFUSIONS. SW PROVIDED PT AND DTR WITH A NEW BLANK AHCD AND ENCOURAGED THEM TO REDO IT. SW ALSO INFORMED THEM TO OBTAIN THE SPECIAL AHCD FROM THEIR [facility] THAT DISCUSSES THE WISHES OF A BAPTISM PT. DTR VERBALIZED UNDERSTANDING. MAUDE ALSO CONFIRMED WITH PT AND DTR THAT PT'S MANAGER PARTY, CARI CÁRDENAS IS PT'S HEALTHCARE AGENT AND PT'S FRIEND, MELINA UNDERWOOD IS PT'S 1ST ALTERNATE AGENT. IF PT IS NOT ABLE TO MAKE DECISIONS OR SIGN FOR CONSENTS, THEN CARI AND MELINA ARE TO BE CONTACTED. MAUDE UPDATED RN, MARCO A. MAUDE WILL CONTINUE TO REMAIN AVAILABLE.
--- NOTE | 2018-08-18 16:32 | NUR ---
Report called to [facility] on med/surg. Patient currently denies pain, has voided to the toilet and is ambulating with 2 person assistance. VSS, although HR is baseline bradycardiac in the 50's, occasionally dropping into the high 40's momentarily. At times also requires 1-2 L NC for sp02 of 88%, only while asleep, currently on RA. Walking boot is currently on left foot, request for CAM boot will have to be made with [employer] (ext. [phone]) tomorrow.
--- NOTE | 2018-08-18 18:36 | NUR ---
PT TRANSFERRED FROM [facility]. A/O X4 VITALS STABLE NO DISTRESS NOTED AT THIS TIME. FAMILY AT BED SIDE. WILL FOLLOW UP
[2018-08-19 01:15] VITALS: BP 110/54; PULSE 61; RESP 16
--- NOTE | 2018-08-19 05:36 | NUR ---
EOSS: Patient remains stable. No s/s of SOB or any discomfort noted. Patient slept most of the night. Fall precaution maintained. No other complaints at this time. Will endorse to AM nurse for continuity of care.
[2018-08-19] MEDS: PANTOPRAZOLE (EC) 40 MG TAB PO SCH (06:04)
--- NOTE | 2018-08-19 06:40 | NUR ---
No synthroid in [facility] at this moment. Called pharmacy and they will deliver it on the next run. Will endorse to AM nurse.
[2018-08-19 07:19] VITALS: BP 122/60; PULSE 55; RESP 18
--- NOTE | 2018-08-19 08:12 | PN ---
Date/Time of Note Date/Time of Note DATE: 08/19/18 TIME: 08:12 Assessment/Plan VTE Prophylaxis Risk score (from Ns)>0 risk: 6 SCD applied (from Ns): No SCD contraindicated: patient refusal Pharmacological prophylaxis: NA/contraindicated Pharm contraindication: bleeding Lines/Catheters IV [facility]from [facility] Peripheral IV Urinary Cath still in place: No Assessment/Plan Assessment/Plan 1. Acute subdural hematoma s/p mechanical fall- stable - Repeat CT scan shows stable SDH. Okay from neurosurgical standpoint for discharge - No new neurological signs appreciated - Patient missed a step walking down front steps outside home. - no focal deficits appreciated 2. mechanical fall - PT/OT recommending HHPT, FWW, and 3:1 commode 3. Left 5th metatarsal fx - Discussed with podiatry and appreciate recommendations - Recommending walking or CAM boot and partial weight bearing left foot. Will need repeat xrays and podiatry follow up in 2 weeks - PT consultation appreciated - pain control 4. hypothyroidism - will continue home dose of levothyroxine 5. Disposition - Medically stable for discharge home Result Diagram: 08/18/18 0458 08/18/18 0458 Subjective 24 Hr Interval Summary Free Text/Dictation Patient states she's doing well and states still with pain in head but significantly better. ambulating better with boot but requiring FWW. No acute overnight events. Exam/Review of Systems Vital Signs Vitals Vital Signs Date Temp Pulse Resp B/P (MAP) Pulse Ox O2 O2 Flow FiO2 Time Delivery Rate 08/19/18 98.9 55 18 122/60 93 Room Air 07:19 (80) 08/18/18 2.0 17:45 Intake and Output 08/18/18 08/18/18 08/19/18 1515:00 23:00 07:00 IntakeIntake Total 450 ml 560 ml OutputOutput Total 300 ml 300 ml BalanceBalance 150 ml 260 ml Exam General: pleasant female, no acute distress. HEENT: hematoma with abrasion left parietal lobe CVS: S1, S2 regular rate and rhythm. no murmurs Lungs: clear to auscultation bilaterally. no wheezing or rhonchi Abd: soft, nontender, nondistended, no rebound or guarding. +BS appreciated all quadrants Ext: moving all extremities. no cyanosis, clubbing or edema appreciated Skin: ecchymosis lateral aspect of left foot. pulses intact, moving all digits Medications Medications Current Medications Cholecalciferol (Vitamin D) 2,000 unit DAILY PO Last administered on 08/18/18at 10:38; Admin Dose 2,000 UNIT; Start 08/18/18 at 09:00 Levothyroxine Sodium (Synthroid) 75 mcg BEFORE BREAKFAST PO Last administered on 08/18/18at 06:06; Admin Dose 75 MCG; Start 08/18/18 at 07:00 Meclizine HCl (Antivert) 25 mg Q8H PRN PO DIZZINESS; Start 08/17/18 at 13:30 Pantoprazole (Protonix Tab) 40 mg DAILY@06 PO Last administered on 08/19/18at 06:04; Admin Dose 40 MG; Start 08/18/18 at 06:00 Ondansetron HCl (Zofran Inj) 4 mg Q6H PRN IV NAUSEA AND/OR VOMITING Last administered on 08/17/18at 17:54; Admin Dose 4 MG; Start 08/17/18 at 13:30 Albuterol (Proventil 0.083% (Neb)) 2.5 mg Q2H RESP THERAPY PRN NEB SHORTNESS OF BREATH; Start 08/17/18 at 13:30 Acetaminophen (Tylenol Tab) 650 mg Q6H PRN PO PAIN LEVEL 1-3 OR FEVER; Start 08/17/18 at 13:30 Docusate Sodium (Colace) 100 mg Q12H PRN PO CONSTIPATION; Start 08/17/18 at 13:30 Magnesium Hydroxide (Milk Of Mag) 30 ml DAILY PRN PO CONSTIPATION; Start at 13:30 Hydralazine HCl (Apresoline) 10 mg Q4H PRN IV SBP >160; Start 08/17/18 at 15:30 Acetaminophen/ Hydrocodone Bitart ([place] (5/325)) 1 tab Q4H PRN PO MODERATE PAIN LEVEL 4-6 Last administered on 08/18/18at 10:39; Admin Dose 1 TAB; Start 08/17/18 at 18:30 SULEMAN BAIRD MD Aug 19, 2018 08:12
--- NOTE | 2018-08-19 08:45 | NUR ---
PT evaluation Therapy day number 1 Evaluation Start Time 08:45 Evaluation End Time 09:45 Evaluation Total Time 60 min Subjective Current complaint of pain Pain Scale NUMERIC Pain Intensity 4 (0-10) Patient Stated Goal for Pain Relief 0 (0-10) Pain Level Comment L foot pain Pre Treatment Vital Signs Stable Yes Supine to Sit Minimum Assist Transfer Sit to Stand Ability Supervised Bed Mobility Sit to Supine Minimum Assist Bed Transfer Ability Stand by Assist Chair Transfer Ability Stand by Assist Additional Mobility Comments requires use of FWW Gait Assist Levels Stand by Assist Assistive Devices Front Wheel Walker Ambulation Distance 20 feet Additional Gait Comments step to gait, moderate reliance of FWW Weight Bearing Assessment Label Left Lower Extremity Weight Bearing Status Partial Weight Bearing Additional Weight Bearing Comments Per MD, "50% weight bearing with CAM boot Static Sitting Balance Good Dynamic Sitting Balance Good Standing Static Balance Fair Dynamic Standing Balance Fair Additional Balance Assessments Comments with FWW Safety Judgement Good Activity Tolerance Fair Equipment Present IV pump Post Treatment Pain Intensity 4 0-10 Total Minutes 60 Total Units 4 PT Technical Record Comment 83 yo female presents s/p mechanical ground level fall. Head CT indicates 3mm subdural hematoma. L foot xray indicates minimally distracted fracture of the fifth metatarsal base PMH: hypothyroidism, GERD, and arthritis Precautions: partial weight bearing LLE with CAM boot, 50% weight bearing per MD. Fall risk PLOF: Patient reports living in [facility] with daughter with 3 stairs to enter. Daughter works supervisor painting department so periods in which patient home alone. No DME available S: Patient in bed, agreeable to PT evaluation. pt cleared for activity per RN O: PT evaluation completed, pt returned back to bed following therapy intervention with call light within reach and bed alarm activated. Spoke to RN regarding pt response to activity and PT plan of care. Translation performed throughout, CAM walker placed prior to ambulation and contacted MD regarding clarification of weight bearing. Reports of pain in L foot with elevation due to boot heaviness. no dizziness or shortness of breath with activity A: Patient presents with fair mobility throughout, limited secondary to LLE strength and pain. Patient required substantial UE support with gait thus required FWW for safe mobility. Pt performs adequate step to gait maintaining weight bearing restriction throughout. However patient receptive to PT education and motivated to participate. Patient could benefit from skilled inpatient physical therapy to improve safety with FWW and stair training as able P: stair training and gait with FWW Recommendation: home with family, HHPT when cleared by MD. Patient will require FWW for safe mobility, Patient may ambulate with nursing assist and FWW
[2018-08-19] MEDS: LEVOTHYROXINE 75 MCG TAB PO SCH (09:05)
[2018-08-19] MEDS: CHOLECALCIFEROL 2,000 UNIT CAP PO SCH (09:05)
--- NOTE | 2018-08-19 11:45 | NUR ---
OT EVAL 83 yo female presents s/p mechanical ground level fall. Head CT indicates 3mm subdural hematoma. L foot xray indicates minimally distracted fracture of the fifth metatarsal base PMH: hypothyroidism, GERD, and arthritis Precautions: partial weight bearing LLE with CAM boot, 50% weight bearing per MD. Fall risk PLOF: Patient reports living in [facility] with daughter with 3 stairs to enter. Pt required occasional supervision with ADL's due to impaired vision. Daughter works slot machine department floorperson so periods in which patient home alone. No DME available CLOF: RN cleared pt for OT eval. Pt received supine in bed with daughter at bedside. Pt agreeable to tx stating 0/10 pain. Pt performed supine-> sit at EOB with SBA. Seated at EOB pt donned CAM boot with minimal assistance. OTR educated pt on WB precautions ( 50% WB on LLE) Pt demonstrated functional mob and toilet transfer using FWW with CGA requiring verbal cueing for proper hand/foot positioning. Pt stood at bathroom sink while performing oral hygiene and UB bathing with CGA. Pt returned to bed with CGA. Pt left supine in bed with all needs met. RN notified. Pt will benefit from Skilled OT tx 1x daily for 3-5x week to increase safety awareness, balance, endurance and independence with self care. Recommendation: home with family, when cleared by MD. Patient will require FWW and 3/1 commode upon discharge.
[2018-08-19] MEDS ORDERED: HYDR-3601 PO (13:48)
--- NOTE | 2018-08-19 13:53 | PDOCDIS ---
Discharge Instructions DIAGNOSIS Discharge Diagnosis 1. Acute subdural hematoma s/p mechanical fall- stable 2. mechanical fall 3. Left 5th metatarsal fracture 4. hypothyroidism CONDITION [id number] Patient Condition: [id number] Stable HOME CARE INSTRUCTIONS: [id number] Diet Instructions: [id number] Low Fat /Cholesterol ACTIVITY: [id number] Activity Restrictions: [id number] Weight Bearing (partial weight bearing on left foot) FOLLOW UP/APPOINTMENTS Follow-up Plan 1. Follow up with your primary care physician in 1-2 weeks 2. You will need to have repeat xrays performed of your left foot in 2 weeks to assess the fracture. Your primary care physician should be able to order these imaging studies 3. Take pain medication as needed for discomfort but avoid any activity while on medications since may cause drowsiness and increase your chances of falling 4. Use the special walking boot when ambulating until pain resolves in your left foot 5. Do not put 100% weight on your left foot and use the front wheel walker while ambulating to assist with this 6. The bleed in your brain is very small but if experiencing worsening headaches, changes in vision, dizziness, or another fall, please go to your nearest emergency department 7. Continue all other medications as prescribed. 8. If experiencing any other concerning signs/symptoms, please go to the emergency department 1. seguimiento con melgar mdico de atencin primaria en 1-2 semanas 2. usted tendr que tener radiografas repetidos realizados de melgar pie chuy en 2 semanas para evaluar la fractura. Melgar mdico de atencin primaria debe ser capaz de ordenar estos estudios de imagenologa 3. Chinchilla analgsicos segn sea necesario para molestias, rocio evite cualquier actividad mientras est tomando medicamentos, ya que puede causar somnolencia y aumentar anh probabilidades de caerse 4. Use la bota especial para caminar cuando est ambulando hasta que el dolor se resuelva en el pie chuy 5. no ponga 100% de peso en el pie chuy y utilice el caminador de la cabrera delantera mientras est ambulando para ayudar con deena 6. el sangrado en el cerebro es muy pequeo, rocio si experimenta yvonne de dolly que empeoran, cambios en la visin, mareos u otra cada, por favor vaya a emlgar Departamento de emergencias ms cercano 7. Contine con todos los dems medicamentos prescritos. 8. Si experimenta cualquier otro referente a signos/sntomas, por favor dirjase al Departamento de emergencias SULEMAN BAIRD MD Aug 19, 2018 13:53
--- NOTE | 2018-08-19 14:00 | NUR ---
CM NOTE; HHPT, DME Order received for HHPT and DME. S/W Pt at bedside who states she has not previously utilized a HH agency and she has no preference for HH. Order faxed to [facility] ([phone], F:[phone]), [facility] ([phone], F:[phone]) and [facility] ([phone], F:[phone]). Confirmation Received. S/W pt regarding FWW and 3 in 1 commode, per pt she does not have the DME at home. Order faxed to [facility] (P:[phone], F:[phone]). Confirmation received. Logan Jameson RN CM [id number] Addendum: 08/19/18 at 1436 by MAHI JAMESON CM Received call from [facility] stating that they are accepting the pt. Addendum: 08/19/18 at 1530 by MAHI JAMESON CM Jonathan Alvarez at [facility] who states that they will deliver DME to pt home.
[2018-08-19 14:44] VITALS: BP 127/73; PULSE 63; RESP 18
--- NOTE | 2018-08-19 14:57 | DS ---
Date/Time of Note Date/Time of Note DATE: 08/19/18 TIME: 14:56 Discharge Summary Admission/Discharge Info Admit Date/Time Aug 17, 2018 at 13:22 Discharge Date/Time 08/19/18 Discharge Diagnosis 1. Acute subdural hematoma s/p mechanical fall- stable 2. mechanical fall 3. Left 5th metatarsal fracture 4. hypothyroidism Patient Condition: Stable Consults Neurosurgery- Dr. Landers Procedures PROCEDURE: CT Brain without contrast. CLINICAL INDICATION: Evaluate subdural hemorrhage. TECHNIQUE: A CT of the brain without contrast was performed utilizing axial sections from the skull base through the vertex. One or more the following does reduction techniques were utilized: Automated exposure control, adjustment of the mA/ or kV according to patient's size, or use of iterative reconstruction technique. Total exam CTDIvol is 39.50 MGy and DLP is 634.23 mGy-cm. DICOM images are available. COMPARISON: Brain CT 08/17/2018. FINDINGS: Persistent similar small acute subdural hemorrhage is again noted overlying left frontoparietal region measuring up to 3 mm in thickness. The ventricles and sulci are mildly prominent indicative of volume loss. There is no mass effect or midline shift. No abnormal intra-axial or extra-axial fluid collections are seen. The morris/white matter differentiation is preserved. There are mild foci of hypoattenuation in the white matter, which are nonspecific in etiology but likely reflect chronic small vessel ischemic changes. There are mild intracranial vascular calcifications consistent with atherosclerosis. The visualized paranasal sinuses are essentially clear. Persistent left frontoparietal scalp swelling and hematoma are again noted without underlying skull fracture. There is thinning of bilateral lens indicative of prior lens replacement. IMPRESSION: 1. Persistent similar acute subdural hemorrhage overlying left frontoparietal region measuring up to 3 mm in thickness. 2. No acute intracranial transcortical infarction or mass effect. 3. Mild intracranial atherosclerosis and chronic small vessel ischemic changes. 4. Mild generalized cerebral volume loss. 5. Persistent left frontoparietal scalp swelling and hematoma are noted without underlying skull fracture. RPTAT: [facility] .Wilfred Telles MD, MD Date Time Electronically viewed and signed by .Farraad Telles MD, MD on 08/18/2018 09:44 PROCEDURE: CT Brain without contrast. CLINICAL INDICATION: Trauma, fall. TECHNIQUE: A CT of the brain without contrast was performed utilizing axial sections from the skull base through the vertex. One or more the following does reduction techniques were utilized: Automated exposure control, adjustment of the mA/ or kV according to patient's size, or use of iterative reconstruction technique. Total exam CTDIvol is 39.64 MGy and DLP is 464.23 mGy-cm. DICOM images are available. COMPARISON: Brain CT 09/01/2017, brain MRI 09/02/2017. FINDINGS: There is small acute subdural hemorrhage overlying left frontoparietal region measuring up to 3 mm in thickness per The ventricles and sulci are mildly prominent indicative of volume loss. There is no mass effect or midline shift. No abnormal intra-axial or extra-axial fluid collections are seen. The morris/white matter differentiation is preserved. There are mild foci of hypoattenuation in the white matter, which are nonspecific in etiology but likely reflect chronic small vessel ischemic changes. There are mild intracranial vascular calcifications consistent with atherosclerosis. The visualized paranasal sinuses are essentially clear. Left frontoparietal scalp swelling and hematoma are noted without underlying skull fracture. IMPRESSION: 1. Small acute subdural hemorrhage overlying left frontoparietal region measuring up to 3 mm in thickness. 2. No acute intracranial transcortical infarction or mass effect. 3. Mild intracranial atherosclerosis and chronic small vessel ischemic changes. 4. Mild generalized cerebral volume loss. 5. Left frontoparietal scalp swelling and hematoma are noted without underlying skull fracture. A call report was made and above findings were discussed and acknowledged by Carol Stephens on 08/17/2018 12:09 PM . RPTAT: [facility] .Wilfred Telles MD, MD Date Time Electronically viewed and signed by .Wilfred Telles MD, MD on 08/17/2018 12:13 PROCEDURE: Left foot series CLINICAL INDICATION: Status post trauma TECHNIQUE: 3 views. COMPARISON: None FINDINGS: There is a nondisplaced but mildly distracted fracture of the fifth metatarsal base with approximate 1 mm of distraction. Spurs and narrowing are seen of the fourth digit distal interphalangeal joint with fusion of the fifth distal interphalangeal joint. The soft tissues are unremarkable. No erosions are noted. IMPRESSION: There is a minimally distracted fracture of the fifth metatarsal base, with extending to the intra-articular surface. RPTAT: [facility] Kailee Scott Physician Date Time Electronically viewed and signed by Physician Geovanni on 08/17/2018 12:24 PROCEDURE: Pelvis. CLINICAL INDICATION: Status post trauma TECHNIQUE: A single AP view the pelvis. COMPARISON: PELVIS 05/06/2017 FINDINGS: There is no evidence of fracture dislocation. The femoral acetabular articulations are unremarkable for the patient's age. The symphysis pubis and sacroiliac joints are unremarkable. The sacrum is partially obscured secondary to overlying stool content. Soft tissues are unremarkable. IMPRESSION: Unremarkable AP pelvis. RPTAT: [facility] Kailee Scott Physician Date Time Electronically viewed and signed by Physician Geovanni on 08/17/2018 12:22 PROCEDURE: CT Cervical Spine without contrast. CLINICAL INDICATION: Trauma, pain after fall TECHNIQUE: A CT of the cervical spine was performed on a multi-slice CT scanner utilizing thin section axial images from the skull base through the thoracic inlet. Sagittal and coronal reformatted images were made. The CTDIvol is 22.24 mGy and the DLP is 512.63 mGycm. DICOM images are available. One or more of the following dose reduction techniques were utilized: 1.) Automated exposure control 2.) Adjustment of the mA +/- kV according to patient's size 3.) Use of iterative reconstruction technique. COMPARISON: No prior studies are available for comparison. FINDINGS: No acute fracture of the cervical spine detected. Normal lordosis without significant vertebral body subluxation. No acute appearing malalignment. No significant disc space narrowing. No evidence of significant spinal canal stenosis. Multilevel facet arthropathy, left greater than right resulting in mild foraminal narrowing on the left at multiple levels. No severe foraminal stenosis detected. No prevertebral soft tissue swelling or foreign body. No acute abnormality of the lung apices. Mild calcified arterial atherosclerosis. IMPRESSION: No acute abnormality of the cervical spine. RPTAT: [facility] Physician Omar Date Time Electronically viewed and signed by Physician Omar on 08/17/2018 14:44 PROCEDURE: XR Hip. CLINICAL INDICATION: Status post trauma TECHNIQUE: AP and frog lateral views of the left hip were performed. COMPARISON: None. FINDINGS: There is normal anatomic alignment without fracture or subluxation. Joint spaces are normal. The soft tissues are unremarkable. IMPRESSION: No acute findings RPTAT: [facility] Physician Geovanni Date Time Electronically viewed and signed by Physician Geovanni on 08/17/2018 12:23 Hx of Present Illness 83 yo F with PMH hypothyroidism, GERD, and arthritis presented to ED after ground level mechanical fall. Patient states she was walking down the steps in front of her home and missed a step and tripped. She twisted her ankle and fell on her left side with head trauma. She is currently complaining of pain in left parietal area, hip, and left foot. She denies any LOC, dizziness, visual changes, focal weakness or numbness, chest pain, or shortness of breath. Imaging studies were performed and CT head showed 3mm subdural hematoma with swelling and hematoma in left frontal parietal area. Hospital Course Patient was admitted to ICU for close monitoring in setting of acute subdural hematoma. Neurosurgery was consulted and recommended repeat CT scan and BP control. Patient had an episode of hypotension after given Tramadol, but improved after fluid bolus. Repeat CT scan of head showed a stable SDH and was cleared for discharge from neurosurgical standpoint. Patient was also found with left 5th metatarsal fracture which was discussed with podiatry. Recommendations were made for walking or CAM boot with partial weight bearing status. Patient was evaluated by physical therapy who recommended front wheel walker and 3:1 commode as well as home health for physical therapy. Patients presenting symptoms improved significantly and was not found with any new neurological issues. On day of discharge patients vitals and physical exam were stable. Patient was discharged home in stable condition with home health services. Home Meds Reported Medications Meclizine Hcl* (Meclizine Hcl*) 25 Mg Tablet, 25 MG PO Q8H PRN for DIZZINESS, TAB 08/17/18 Levothyroxine Sodium* (Levoxyl*) 75 Mcg Tablet, 75 MCG PO BEFORE BREAKFAST, #30 TAB 08/17/18 Zolpidem Tartrate* (Zolpidem Tartrate*) 5 Mg Tablet, 5 MG PO QHS PRN for INSOMNIA, #30 TAB 08/17/18 Cholecalciferol (Vitamin D3) (VITAMIN D-3) 2,000 Unit Capsule, 2000 UNIT PO DAILY, CAP 08/17/18 Omeprazole* (Omeprazole*) 40 Mg Capsule., 40 MG PO DAILY, #30 CAP 08/17/18 Discontinued Reported Medications Levothyroxine Sodium* (Levothyroxine Sodium*) 75 Mcg Tablet, 75 MCG PO BEFORE BREAKFAST, #30 TAB 05/06/17 Alendronate Sodium* (Fosamax*) 70 Mg Tablet, 70 MG PO Q7D, #4 TAB 05/06/17 Omeprazole* (Omeprazole*) 20 Mg Capsule.dr, 20 MG PO DAILY, CAP 07/27/15 Cholecalciferol* (Vitamin D3*) 2,000 Unit Cap, 2000 UNIT PO DAILY, CAP 07/27/15 Discontinued Scripts Hydrocodone/Acetaminophen (Chacon 5-325 Tablet) 1 Each Tablet, 1 TAB PO Q6H PRN for PAIN, #20 TAB Prov:PAYAL MCINTOSH DO 05/06/17 Follow-up Plan 1. Follow up with your primary care physician in 1-2 weeks 2. You will need to have repeat xrays performed of your left foot in 2 weeks to assess the fracture. Your primary care physician should be able to order these imaging studies 3. Take pain medication as needed for discomfort but avoid any activity while on medications since may cause drowsiness and increase your chances of falling 4. Use the special walking boot when ambulating until pain resolves in your left foot 5. Do not put 100% weight on your left foot and use the front wheel walker while ambulating to assist with this 6. The bleed in your brain is very small but if experiencing worsening headaches, changes in vision, dizziness, or another fall, please go to your nearest emergency department 7. Continue all other medications as prescribed. 8. If experiencing any other concerning signs/symptoms, please go to the emergency department 1. seguimiento con grossman mdico de atencin primaria en 1-2 semanas 2. usted tendr que tener radiografas repetidos realizados de grossman pie chuy en 2 semanas para evaluar la fractura. Grossman mdico de atencin primaria debe ser capaz de ordenar estos estudios de imagenologa 3. [place] analgsicos segn sea necesario para molestias, rocio evite cualquier actividad mientras est tomando medicamentos, ya que puede causar somnolencia y aumentar anh probabilidades de caerse 4. Use la bota especial para caminar cuando est ambulando hasta que el dolor se resuelva en el pie chuy 5. no ponga 100% de peso en el pie chuy y utilice el caminador de la cabrera delantera mientras est ambulando para ayudar con deena 6. el sangrado en el cerebro es muy pequeo, rocio si experimenta yvonne de dolly que empeoran, cambios en la visin, mareos u otra cada, por favor vaya a grossman Departamento de emergencias ms cercano 7. Contine con todos los dems medicamentos prescritos. 8. Si experimenta cualquier otro referente a signos/sntomas, por favor dirjase al Departamento de emergencias Primary Care Provider Not On Staff Doctor Time spent on discharge: > 30 minutes SULEMAN BAIRD MD Aug 19, 2018 14:57
--- NOTE | 2018-08-19 17:05 | NUR ---
Discharge: Patient was d/c home with home health, information provided. Pt verbalize understanding, family at bedside. Instruction and Rx was also provided, instruction provided in Norwegian. IV removed from left FA x2, angiocath intact. PT has CAM boot on the left foot, patient will have walker and 3:1 commode provided to patients home address. PT has all of the belonging, accompanied by Volunteer and family, using wheelchair.
== END 2018-08-19 16:28 | disposition home health service (06) | DRG 87 ==
LOC: E/R 10:54 → ICU 13:22 → 2NE 08-18 16:45
PROVIDERS: ADMIT Internal Medicine; ATTEND Internal Medicine
DX: S06.5X0A Traumatic subdural hemorrhage without loss of consciousness, initial encounter (principal); S92.355A Nondisplaced fracture of fifth metatarsal bone, left foot, initial encounter for closed fracture; E03.9 Hypothyroidism, unspecified; Z90.11 Acquired absence of right breast and nipple; Z85.3 Personal history of malignant neoplasm of breast; W10.9XXA Fall (on) (from) unspecified stairs and steps, initial encounter; X50.1XXA Overexertion from prolonged static or awkward postures, initial encounter; Y92.008 Other place in unspecified non-institutional (private) residence as the place of occurrence of the external cause
CPT/HCPCS: 36415; 70450; 72125; 72170; 73510; 80048; 80069; 83735; 85025; 85610; 85730; 87081; 96374; 96375; 97161; 97167; J2270; J2405; J7030